=== PATIENT | male | born 1975 | race Caucasian/White ===

== ENCOUNTER 2018-02-27 16:38 | Inpatient (IN) | payer OTHER ==
[~2018-02-27] VITALS: Ht 185.4 cm; Wt 68.0 kg
[2018-02-27 16:52] VITALS: BP 124/85; PULSE 70; RESP 18; TEMP 98.4; O2SAT 99
[2018-02-27] MEDS ORDERED: HYDROmorphone HCL PF 1 MG/ML VIAL SQ ONE (17:45)
[2018-02-27] MEDS ORDERED: DEXAMETHASONE SOD PHOS 20 MG/5 ML VIAL IM ONE (17:45)
[2018-02-27] MEDS ORDERED: KETOROLAC TROMETHAMINE 60 MG/2 ML (IM) VIAL IM ONE (17:45)
[2018-02-27] MEDS ORDERED: DIAZEPAM 10 MG TAB PO ONE (17:45)
[2018-02-27] MEDS ORDERED: HYDROmorphone HCL PF 2 MG/ML VIAL IM ONE (18:00)
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
[2018-02-27] MEDS ORDERED: SODIUM CHLOR 0.9% 1000 ML INJ 1,000 ML IV SCH ×2 (18:57→23:30)
[2018-02-27 19:17] VITALS: BP 103/56; PULSE 73; RESP 16; O2SAT 97
[2018-02-27 19:24] LABS: AUTOMATED NEUTROPHIL # 12.4 TH/MM3 (1.8-7.7); BASOPHIL % 0.2 % (0.0-2.0); EOSINOPHIL % 0.2 % (0.0-4.0); HEMOGLOBIN 12.4 GM/DL (13.0-17.0); LYMPH % 2.9 % (9.0-44.0); LYMPHOCYTE # 0.4 TH/MM3 (1.0-4.8); MEAN CELL VOLUME 97.6 FL (80.0-100.0); MEAN CORPUSCULAR HEMOGLOBIN 33.6 PG (27.0-34.0); MEAN CORPUSCULAR HGB CONC 34.4 % (32.0-36.0); MEAN PLATELET VOLUME 7.6 FL (7.0-11.0); MONO % 5.7 % (0.0-8.0); MONOCYTE # 0.8 TH/MM3 (0-0.9); PLATELET COUNT 228 TH/MM3 (150-450); RED BLOOD COUNT 3.69 MIL/MM3 (4.50-5.90); RED CELL DISTRIBUTION WIDTH 13.3 % (11.6-17.2); WHITE BLOOD COUNT 13.7 TH/MM3 (4.0-11.0)
[2018-02-27 19:30] LABS: PROTHROMBIN TIME - PATIENT 10.6 SEC (9.8-11.6)
[2018-02-27 19:47] LABS: ALBUMIN 3.5 GM/DL (3.4-5.0); ALT (GPT) 33 U/L (12-78); AST (GOT) 39 U/L (15-37); BICARBONATE 22.8 MEQ/L (21.0-32.0); BLOOD UREA NITROGEN 12 MG/DL (7-18); CALCIUM 8.5 MG/DL (8.5-10.1); CHLORIDE 106 MEQ/L (98-107); CREATININE 1.11 MG/DL (0.60-1.30); GLOMERULAR FILTRATION RATE 73 ML/MIN (>89); GLUCOSE,RANDOM 85 MG/DL (74-106); SODIUM (NA) 141 MEQ/L (136-145)
[2018-02-27 19:50] LABS: ALKALINE PHOSPHATASE 59 U/L (45-117); TOTAL BILIRUBIN ADULT 0.7 MG/DL (0.2-1.0); TOTAL PROTEIN 7.2 GM/DL (6.4-8.2)
[2018-02-27] MEDS ORDERED: MORPHINE SULFATE 4 MG/ML INJ IV PUSH ONE (20:15)
[2018-02-27] MEDS ORDERED: IOHEXOL 350 MG/ML 10 ML VIAL (for RAD DIAG) IVCONTRAST ONE (20:44)
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
[2018-02-27] MEDS ORDERED: SODIUM CHLOR 0.9% 1000 ML INJ 1,000 ML IV ONE (21:45)
[2018-02-27] MEDS: MORPHINE SULFATE 4 MG/ML INJ IV PRN (23:39)
[2018-02-27 23:40] VITALS: BP 111/58; PULSE 76; RESP 20; TEMP 98.8; O2SAT 98
[2018-02-28] MEDS: oxyCODONE/ACETAMINOPHEN 5 MG/325 MG TAB PO PRN ×5 (03:51→22:28)
[2018-02-28 04:00] VITALS: BP 104/51; PULSE 63; RESP 18; TEMP 99; O2SAT 98
[2018-02-28 08:00] VITALS: BP 115/54; PULSE 70; RESP 18; TEMP 98.5; O2SAT 99
[2018-02-28] MEDS ORDERED: BISACODYL 10 MG SUPP RECTAL PRN (08:00)
[2018-02-28] MEDS ORDERED: SENNOSIDES 8.6 MG TAB PO PRN (08:00)
[2018-02-28] MEDS ORDERED: LACTULOSE SYRUP 20 GM/30 ML CUP PO PRN (08:00)
[2018-02-28] MEDS: DOCUSATE SODIUM 50 MG/SENNA 8.6 MG TAB PO SCH ×2 (08:44→22:25)
[2018-02-28] MEDS: FAMOTIDINE 20 MG TAB PO SCH ×2 (08:45→22:25)
[2018-02-28] MEDS: LIDOCAINE HCL 5% PATCH T-DERMAL SCH (08:45)
[2018-02-28] MEDS: METHOCARBAMOL 500 MG TAB PO SCH ×3 (08:55→22:25)
[2018-02-28] MEDS: MAGNESIUM HYDROXIDE SUSP 30 ML CUP PO SCH ×2 (08:55→22:25)
[2018-02-28] MEDS ORDERED: oxyCODONE/ACETAMINOPHEN 5 MG/325 MG TAB PO PRN (11:45)
[2018-02-28 12:00] VITALS: BP 122/60; PULSE 72; RESP 18; TEMP 98.3; O2SAT 99
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
[2018-02-28] MEDS ORDERED: LIDOCAINE HCL 5% PATCH T-DERMAL SCH (12:15)
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
[2018-02-28] MEDS ORDERED: MELATONIN 5 MG TAB PO PRN (13:30)
[2018-02-28 16:12] VITALS: BP 103/58; PULSE 66; RESP 17; TEMP 99.1; O2SAT 98
[2018-02-28 20:00] VITALS: BP 114/56; PULSE 58; RESP 17; TEMP 98.5; O2SAT 97
[2018-03-01 00:01] VITALS: BP 107/62; PULSE 59; RESP 17; TEMP 98.5; O2SAT 99
[2018-03-01] MEDS: oxyCODONE/ACETAMINOPHEN 5 MG/325 MG TAB PO PRN ×4 (03:01→18:07)
[2018-03-01 04:00] VITALS: BP 107/56; PULSE 55; RESP 17; TEMP 98.2; O2SAT 98
[2018-03-01] MEDS: METHOCARBAMOL 500 MG TAB PO SCH ×3 (05:44→21:32)
[2018-03-01 05:59] LABS: AUTOMATED NEUTROPHIL # 4.4 TH/MM3 (1.8-7.7); BASOPHIL % 0.2 % (0.0-2.0); EOSINOPHIL # 0.1 TH/MM3 (0-0.4); EOSINOPHIL % 1.9 % (0.0-4.0); HEMATOCRIT 29.2 % (39.0-51.0); HEMOGLOBIN 9.9 GM/DL (13.0-17.0); LYMPH % 22.8 % (9.0-44.0); LYMPHOCYTE # 1.6 TH/MM3 (1.0-4.8); MEAN CELL VOLUME 98.3 FL (80.0-100.0); MEAN CORPUSCULAR HEMOGLOBIN 33.3 PG (27.0-34.0); MEAN CORPUSCULAR HGB CONC 33.9 % (32.0-36.0); MEAN PLATELET VOLUME 8.3 FL (7.0-11.0); MONO % 10.6 % (0.0-8.0); MONOCYTE # 0.7 TH/MM3 (0-0.9); NEUT % 64.5 % (16.0-70.0); PLATELET COUNT 178 TH/MM3 (150-450); RED BLOOD COUNT 2.97 MIL/MM3 (4.50-5.90); RED CELL DISTRIBUTION WIDTH 13.2 % (11.6-17.2); WHITE BLOOD COUNT 6.9 TH/MM3 (4.0-11.0)
[2018-03-01 06:26] LABS: BICARBONATE 28.4 MEQ/L (21.0-32.0); CALCIUM 8.1 MG/DL (8.5-10.1); CREATININE 1.06 MG/DL (0.60-1.30)
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
[2018-03-01 08:13] VITALS: BP 105/53; PULSE 57; RESP 16; TEMP 98; O2SAT 98
[2018-03-01] MEDS: REMOVE OLD PATCH T-DERMAL SCH ×2 (09:00→21:43)
[2018-03-01] MEDS: DOCUSATE SODIUM 50 MG/SENNA 8.6 MG TAB PO SCH ×2 (09:14→21:32)
[2018-03-01] MEDS: FAMOTIDINE 20 MG TAB PO SCH ×2 (09:14→21:32)
[2018-03-01] MEDS: LIDOCAINE HCL 5% PATCH T-DERMAL SCH (09:14)
[2018-03-01] MEDS: MAGNESIUM HYDROXIDE SUSP 30 ML CUP PO SCH ×2 (09:21→20:00)
[2018-03-01] MEDS: MORPHINE SULFATE 4 MG/ML INJ IV PRN ×4 (10:46→21:37)
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
[2018-03-01] MEDS ORDERED: fentaNYL 50 MCG/HR PATCH T-DERMAL SCH (12:00)
[2018-03-01 12:23] VITALS: BP 125/64; PULSE 73; RESP 17; TEMP 98.4; O2SAT 97
[2018-03-01] MEDS ORDERED: ASPIRIN 81 MG CHEW TAB PO ONE (12:30)
[2018-03-01] MEDS ORDERED: PERI PO (13:01)
[2018-03-01] MEDS ORDERED: MELA5 PO (13:01)
[2018-03-01] MEDS ORDERED: MAGN30S PO (13:01)
[2018-03-01] MEDS ORDERED: ASPI81 PO (13:06)
[2018-03-01] MEDS ORDERED: WALKER WHEELS/F1 MIS (14:44)
--- NOTE | 2018-03-01 14:46 | HHI.FF ---
Face to Face Verification Diagnosis: (1) Pelvic hematoma with delivery with complication (2) Left acetabular fracture (3) Pubic bone fracture (4) Left rib fracture (5) Fracture of left superior pubic ramus (6) Fracture of right superior pubic ramus (7) Fracture of left inferior pubic ramus Physical Therapy Order: Evaluate and Treat, Improve ambulation, Strength and gait training Home Health Nursing Order: Medical education Signs/symptoms of disease process Medication education-adverse effect Nursing assessment with vital signs I have seen patient Karthikeyan Rincon on 03/01/18. My clinical findings support the need for the requested home health care services because: Ltd mobility - disease progression Limited ability to care for self High risk of falls I certify that my clinical findings support that this patient is homebound because: Unsteady gait/balance Unsafe to leave home unassisted [id number] bed/chair Unable to use public transportation Lillie Dinh Mar 01, 2018 14:46
[2018-03-01] MEDS ORDERED: ENOXAPARIN SODIUM 40 MG/0.4 ML SYRINGE SQ SCH (15:00)
[2018-03-01 15:54] VITALS: BP 124/67; PULSE 76; RESP 18; TEMP 98.7; O2SAT 97
[2018-03-01 20:00] VITALS: BP 122/67; PULSE 67; RESP 17; TEMP 98.7; O2SAT 99
[2018-03-01] MEDS: ASPIRIN 81 MG CHEW TAB PO SCH (21:32)
[2018-03-01] MEDS: SODIUM CHLORIDE 0.9% FLUSH 10 ML FLUSH IV FLUSH PRN (21:37)
[2018-03-02 00:01] VITALS: BP 124/66; PULSE 68; RESP 16; TEMP 98.8; O2SAT 99
[2018-03-02] MEDS: oxyCODONE/ACETAMINOPHEN 5 MG/325 MG TAB PO PRN ×3 (02:04→09:53)
[2018-03-02 04:00] VITALS: BP 108/55; PULSE 63; RESP 17; TEMP 98.4; O2SAT 98
[2018-03-02] MEDS: MORPHINE SULFATE 4 MG/ML INJ IV PRN ×3 (04:06→11:55)
[2018-03-02] MEDS: SODIUM CHLORIDE 0.9% FLUSH 10 ML FLUSH IV FLUSH PRN (04:07)
[2018-03-02] MEDS: METHOCARBAMOL 500 MG TAB PO SCH (06:00)
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
[2018-03-02] MEDS: LIDOCAINE HCL 5% PATCH T-DERMAL SCH (07:33)
[2018-03-02] MEDS: FAMOTIDINE 20 MG TAB PO SCH (07:34)
[2018-03-02] MEDS: ASPIRIN 81 MG CHEW TAB PO SCH (07:34)
[2018-03-02] MEDS: MAGNESIUM HYDROXIDE SUSP 30 ML CUP PO SCH (07:34)
[2018-03-02] MEDS: DOCUSATE SODIUM 50 MG/SENNA 8.6 MG TAB PO SCH (07:34)
[2018-03-02 08:00] VITALS: BP 110/56; PULSE 71; RESP 15; TEMP 97.8; O2SAT 98
[2018-03-02] MEDS ORDERED: LIDO1ADH4 T-DERMAL (11:31)
[2018-03-02] MEDS ORDERED: OXYC1TAB63 PO (11:31)
[2018-03-02] MEDS ORDERED: METH500T3 PO (11:31)
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
== END 2018-03-02 12:23 | disposition home health service (06) | DRG 183 ==
LOC: NEPD 16:38 → NEDA 21:41 → N06A 22:35 → OBSVTOIN 02-28 14:57
PROVIDERS: ADMIT Surgery; ATTEND Surgery
DX: S22.42XA Multiple fractures of ribs, left side, initial encounter for closed fracture (principal); S32.402A Unspecified fracture of left acetabulum, initial encounter for closed fracture; S32.19XA Other fracture of sacrum, initial encounter for closed fracture; S32.511A Fracture of superior rim of right pubis, initial encounter for closed fracture; S32.592A Other specified fracture of left pubis, initial encounter for closed fracture; S32.512A Fracture of superior rim of left pubis, initial encounter for closed fracture; S30.0XXA Contusion of lower back and pelvis, initial encounter; M51.27 Other intervertebral disc displacement, lumbosacral region; V43.52XA Car driver injured in collision with other type car in traffic accident, initial encounter
CPT/HCPCS: 71045; 71260; 72125; 72131; 74177; 80048; 80053; 85025; 85610; 85730; 94150; 94667; 94668; J1100; J1170; J1650; J1885; J2270; J7030; Q9967